=== PATIENT | female | born 1935 | race Caucasian/White ===

== ENCOUNTER 2019-06-20 15:53 | Emergency (ER) | payer OTHER ==
--- NOTE | 2019-06-20 16:06 | PDOC ---
Rapid Medical Evaluation Time Seen by Provider: 06/20/19 16:03 Medical Evaluation: Allergies Allergy/AdvReac Type Severity Reaction Status Date / Time metronidazole [From Flagyl] Allergy Severe Rash Verified 05/06/15 10:39 Metronidazole HCl Allergy Severe Rash Verified 05/06/15 10:39 [From Flagyl] codeine [Codeine] Allergy Intermediate Verified 05/06/15 10:39 shellfish derived Allergy Intermediate Verified 05/06/15 10:39 06/20/19 16:03 I performed a brief in-person evaluation of this patient. 83-year-old female HTN, HLD, fibromyalgia presenting with hematuria vs. rectal bleeding x 1 today. No pain, no dizziness/lightheadedness. Alert, oriented, no distress. No abdominal tenderness. I have ordered the following: UA/culture CBC, CMP, PT/INR, T&S Patient will proceed to the main ED for further evaluation. Discharge Disposition - Diagnosis Hematuria - Referrals - Patient Instructions - Post Discharge Activity
[2019-06-20 16:07] VITALS: BP 137/71; PULSE 71; TEMP 98; BMI 31.8
[2019-06-20 16:42] LABS: BASO % 0.7 % (0-2.0); EOS % 0.8 % (0-4.5); HEMATOCRIT 38.1 % (32.4-45.2); HEMOGLOBIN 12.9 GM/dL (10.7-15.3); MCH 32.7 pg (25.7-33.7); MCHC 33.9 g/dl (32.0-36.0); MEAN CELL VOLUME 96.5 fl (80-96); MEAN PLT VOLUME 7.8 fl (7.5-11.1); NEUT % 68.5 % (42.8-82.8); PLATELET COUNT 217 K/MM3 (134-434); RBC 3.95 M/mm3 (3.60-5.2); RDW 12.8 % (11.6-15.6); WHITE BLOOD COUNT 8.1 K/mm3 (4.0-10.0)
[2019-06-20 16:51] LABS: EPI CELLS 6.6 /HPF (0-5/HPF); HYALINE CASTS 3 /lpf (0-8); URINE APPEARANCE CLEAR; URINE BACTERIA 19.8 /hpf (NEGATIVE); URINE BILIRUBIN NEGATIVE (NEGATIVE); URINE COLOR YELLOW; URINE GLUCOSE (UA) NEGATIVE (NEGATIVE); URINE KETONE NEGATIVE (NEGATIVE); URINE LEUK ESTERASE TRACE (NEGATIVE); URINE NITRITE NEGATIVE (NEGATIVE); URINE PROTEIN TRACE (NEGATIVE); URINE RBC 24 /hpf (0-4); URINE UROBILINOGEN 0.2 mg/dL (0.2-1.0); URINE WBC 8 /hpf (0-5)
[2019-06-20 16:54] LABS: INR 0.93 (0.83-1.09)
[2019-06-20 17:12] LABS: ALBUMIN 3.8 g/dl (3.4-5.0); BILIRUBIN,TOTAL 0.2 mg/dL (0.2-1); CALCIUM 10.1 mg/dL (8.5-10.1); CREATININE 0.9 mg/dL (0.55-1.3); TOT PROT 6.8 g/dl (6.4-8.2)
--- NOTE | 2019-06-20 18:22 | PDOC ---
History of Present Illness - General Chief Complaint: Rectal Bleed Stated Complaint: rectal bleeding Time Seen by Provider: 06/20/19 16:03 History Source: Patient Exam Limitations: No Limitations - History of Present Illness Initial Comments: 06/22/19 13:43 83YOF with h/o who p/w report of one episode of medium-red blood in the toilet (not mixed with stool) and on the toilet paper earlier this afternoon. She denies any rectal pain and she herself speculates that this may be her hemorrhoids. She denies recent f/c/n/v/d/c, chest pain, SOB, RDZ, lightheadedness, dizziness, abdominal pain, n/t/w focally, generalized weakness, or other symptoms. Last colonoscopy was about 5 years ago and she has followed in the past with Dr. Jefferson and Dr. Fontana. Past History - Past Medical History Allergies/Adverse Reactions: Allergies Allergy/AdvReac Type Severity Reaction Status Date / Time metronidazole [From Flagyl] Allergy Severe Rash Verified 05/06/15 10:39 Metronidazole HCl Allergy Severe Rash Verified 05/06/15 10:39 [From Flagyl] codeine [Codeine] Allergy Intermediate Verified 05/06/15 10:39 shellfish derived Allergy Intermediate Verified 05/06/15 10:39 Home Medications: Ambulatory Orders Acetaminophen/Caffeine/Butalb [Fioricet -] 1 tab.ec PO PRN PRN #0 tablet Ascorbic Acid [Vitamin C] 1,000 mg PO DAILY #0 tablet 01/19/13 Aspirin 81 mg PO DAILY #0 tab.chew 01/19/13 Calcium Carb/Vit D3/Minerals [Calcium 600 + D Tablet] 2 each PO DAILY #0 tablet 01/19/13 Metoprolol Succinate [Toprol XL -] 25 mg PO HS #0 tab.sr.24h 01/19/13 NIFEdipine XL [Adalat Cc] 60 mg PO DAILY #0 tablet.sa 01/19/13 Olmesartan Medoxomil [Benicar -] 20 mg PO DAILY #0 tablet 01/19/13 [place] Oil/[place]-3 Fatty Acids [Fish Oil 500 mg Softgel] 2 each PO DAILY #0 capsule 01/19/13 Ubidecarenone [Co Q10] 200 mg PO DAILY #0 capsule 01/19/13 Biotin 1,000 mg PO DAILY 01/27/16 Glucosamine Sulfate Dipot Chlr [Glucosamine] 1,000 mg PO DAILY 01/27/16 Lutein 20 mg PO DAILY 01/27/16 Methylprednisolone [Medrol -] 2 mg PO BID 01/27/16 Rosuvastatin Calcium [Crestor] 5 mg PO DAILY 01/27/16 Anemia: No Asthma: No Cancer: Yes (BREAST) Cardiac Disorders: Yes (CAD;Heart Attack w/ card cath) CVA: No COPD: No CHF: No Dementia: No Diabetes: No GI Disorders: Yes (DUODENITIS; DIVERTICULOSIS;GERD; H/H) Disorders: Yes (CYSTOCYLE) HTN: Yes Hypercholesterolemia: Yes Liver Disease: No Seizures: No Thyroid Disease: No - Surgical History Abdominal Surgery: Yes (BENIGN CYSTS) Appendectomy: Yes Cardiac Surgery: Yes (CARGIAC CATH 91) Cholecystectomy: Yes Lung Surgery: No Neurologic Surgery: No Orthopedic Surgery: Yes (RIGHT ROTATOR CUFF) - Immunization History Immunization Up to Date: No - Psycho Social/Smoking Cessation Hx Smoking Status: No Smoking History: Never smoked Have you smoked in the past 12 months: No Number of Cigarettes Smoked Daily: 0 Information on smoking cessation initiated: No Hx Alcohol Use: No Drug/Substance Use Hx: No Substance Use Type: None Hx Substance Use Treatment: No Review of Systems - Review of Systems Able to Perform ROS?: Yes Comments:: 06/22/19 17:08 GEN: no fever, chills, night sweats, generalized weakness, malaise, or unintentional weight change HEENT: no ear pain, congestion, sore throat, rhinorrhea, nosebleed, vision change, or eye pain CV: no chest pain, palpitations, lightheadedness, syncope, edema, or exercise intolerance RESP: no cough, wheezing, or SOB GI: medium red blood per rectum, no abdominal pain, nausea, vomiting, diarrhea, constipation, appetite change, or white/black stool : no dysuria, hematuria, frequency, incontinence, retention, pruritis, bleeding, or discharge MSK: no muscle weakness or pain, no muscle wasting, no joint swelling or pain NEURO: no headache, seizure, vertigo, imbalance, numbness, tingling, focal weakness, or difficulty walking/talking PSYCH: no insomnia, behavior change, SI, HI, or substance use SKIN: no prutitis, excessive dryness, jaundice, rash, cuts, or unexplained bruises ROS otherwise negative except as noted in HPI *Physical Exam - Vital Signs Last Vital Signs Temp Pulse Resp BP Pulse Ox 98.0 F 71 16 137/71 98 06/20/19 16:04 06/20/19 16:04 06/20/19 16:04 06/20/19 16:04 06/20/19 16:04 - Physical Exam Comments: GENERAL: very pleasant and kind elderly female accompanied by her very pleasant and kind , well-appearing, nontoxic, A/Ox4, no distress, answers questions appropriately, walks around the department intermittently HEENT: PERRLA, EOMI, moist mucous membranes NECK/BACK: no midline ttp, no spinal stepoff or deformity, no hematoma, full ROM , neck supple CARDIOVASCULAR: regular rate/rhythm, normal S1S2, no MGR, strong peripheral pulses, capillary refill <2 seconds, extremities wwp, no edema LUNGS/RESPIRATORY: no respiratory distress, CTAB GI/ABDOMEN: symmetric [id number], normoactive BS, soft, no ttp, no midline pulsatile masses, rectal with small non-thrombosed nontender external hemorrhoid at 12 to 3 o'clock, JEFFERSON without blood and minimal sample but this is still sent for FOBT : no CVA tenderness EXTREMITIES: no muscle atrophy, no acute deformity SKIN: warm and dry, no pallor, no jaundice, no rash, no bruising, no skin breakdown, no cuts, no lesions NEUROLOGICAL: GCS 15, CN II-XII grossly intact, 5/5 strength proximally and distally, no facial droop ED Treatment Course - LABORATORY CBC & Chemistry Diagram: 06/20/19 16:22 06/20/19 16:22 - ADDITIONAL ORDERS Additional order review: Laboratory Results 06/20/19 06/20/19 06/20/19 16:22 16:22 16:22 PT with INR 11.00 INR 0.93 Sodium Potassium Chloride Carbon Dioxide Anion Gap BUN Creatinine Est GFR (CKD-EPI)AfAm Est GFR (CKD-EPI)NonAf Random Glucose Calcium Total Bilirubin AST ALT Alkaline Phosphatase Total Protein Albumin Urine Color Yellow Urine Appearance Clear Urine pH 5.0 Ur Specific [place] 1.022 Urine Protein Trace Urine Glucose (UA) Negative Urine Ketones Negative Urine Blood 3+ H Urine Nitrite Negative Urine Bilirubin Negative Urine Urobilinogen 0.2 Ur Leukocyte Esterase Trace Urine WBC (Auto) 8 Urine RBC (Auto) 24 Urine Casts (Auto) 3 U Epithel Cells (Auto) 6.6 Urine Bacteria (Auto) 19.8 Blood Type O POSITIVE Antibody Screen Negative 06/20/19 16:22 PT with INR INR Sodium 141 Potassium 4.0 Chloride 106 Carbon Dioxide 29 Anion Gap 6 L BUN 22.0 H Creatinine 0.9 Est GFR (CKD-EPI)AfAm 68.53 Est GFR (CKD-EPI)NonAf 59.13 Random Glucose 115 H Calcium 10.1 Total Bilirubin 0.2 AST 13 L ALT 19 Alkaline Phosphatase 90 Total Protein 6.8 Albumin 3.8 Urine Color Urine Appearance Urine pH Ur Specific [place] Urine Protein Urine Glucose (UA) Urine Ketones Urine Blood Urine Nitrite Urine Bilirubin Urine Urobilinogen Ur Leukocyte Esterase Urine WBC (Auto) Urine RBC (Auto) Urine Casts (Auto) U Epithel Cells (Auto) Urine Bacteria (Auto) Blood Type Antibody Screen 06/20/19 16:22 RBC 3.95 MCV 96.5 H MCHC 33.9 RDW 12.8 MPV 7.8 Neutrophils % 68.5 Lymphocytes % 22.0 Monocytes % 8.0 Eosinophils % 0.8 Basophils % 0.7 Medical Decision Making - Medical Decision Making 83YOF p/w painless medium red small-volume BPR. Initial Vital Signs Temp Pulse Resp BP Pulse Ox 98.0 F 71 16 137/71 98 06/20/19 16:04 06/20/19 16:04 06/20/19 16:04 06/20/19 16:04 06/20/19 16:04 Exam: As noted in Physical Exam section. DDX IBNLT bleeding hemorrhoids (internal vs. external, simple vs. thrombosed), vascular malformation, ruptured diverticulum, diverticulitis, colorectal CA, mesenteric ischemia, anal fissure, ulcerative colitis, AAA/AD, endometriosis, Meckels diverticulum, supratherapeutic INR, etc. W/U ordered: Labs as noted below Tx ordered: None at this time The patient is hemodynamically stable at this time (no hypotension, tachycardia , or reported decreased UOP). Laboratory Tests 06/20/19 06/20/19 06/20/19 16:22 16:22 16:22 WBC 8.1 RBC 3.95 Hgb 12.9 Hct 38.1 MCV 96.5 H MCH 32.7 MCHC 33.9 RDW 12.8 Plt Count 217 MPV 7.8 Absolute Neuts (auto) 5.5 Neutrophils % 68.5 Lymphocytes % 22.0 Monocytes % 8.0 Eosinophils % 0.8 Basophils % 0.7 Nucleated RBC % 0 PT with INR 11.00 INR 0.93 Sodium 141 Potassium 4.0 Chloride 106 Carbon Dioxide 29 Anion Gap 6 L BUN 22.0 H Creatinine 0.9 Est GFR (CKD-EPI)AfAm 68.53 Est GFR (CKD-EPI)NonAf 59.13 Random Glucose 115 H Calcium 10.1 Total Bilirubin 0.2 AST 13 L ALT 19 Alkaline Phosphatase 90 Total Protein 6.8 Albumin 3.8 Urine Color Urine Appearance Urine pH Ur Specific [place] Urine Protein Urine Glucose (UA) Urine Ketones Urine Blood Urine Nitrite Urine Bilirubin Urine Urobilinogen Ur Leukocyte Esterase Urine WBC (Auto) Urine RBC (Auto) Urine Casts (Auto) U Epithel Cells (Auto) Urine Bacteria (Auto) Stool Occult Blood Blood Type Antibody Screen 06/20/19 06/20/19 06/20/19 16:22 16:22 18:15 WBC RBC Hgb Hct MCV MCH MCHC RDW Plt Count MPV Absolute Neuts (auto) Neutrophils % Lymphocytes % Monocytes % Eosinophils % Basophils % Nucleated RBC % PT with INR INR Sodium Potassium Chloride Carbon Dioxide Anion Gap BUN Creatinine Est GFR (CKD-EPI)AfAm Est GFR (CKD-EPI)NonAf Random Glucose Calcium Total Bilirubin AST ALT Alkaline Phosphatase Total Protein Albumin Urine Color Yellow Urine Appearance Clear Urine pH 5.0 Ur Specific [place] 1.022 Urine Protein Trace Urine Glucose (UA) Negative Urine Ketones Negative Urine Blood 3+ H Urine Nitrite Negative Urine Bilirubin Negative Urine Urobilinogen 0.2 Ur Leukocyte Esterase Trace Urine WBC (Auto) 8 Urine RBC (Auto) 24 Urine Casts (Auto) 3 U Epithel Cells (Auto) 6.6 Urine Bacteria (Auto) 19.8 Stool Occult Blood Negative Blood Type O POSITIVE Antibody Screen Negative Workup is not concerning for emergency-level pathology at this time. The Pt is appropriate for discharge home w/ close outpatient f/u. The Pt is comfortable with this plan and will follow up with their primary care provider in 1-3 days. Referral information is given for GI provider Dr. Fontana to ensure she still has his contact info. Specific return precautions are discussed and they will come back to the ER if necessary. Discharge - Discharge Information Problems reviewed: Yes Clinical Impression/Diagnosis: Rectal bleeding Hematuria Qualifiers: Hematuria type: unspecified type Qualified Code(s): R31.9 - Hematuria, unspecified Hemorrhoids Qualifiers: Hemorrhoid type: unspecified Qualified Code(s): K64.9 - Unspecified hemorrhoids Condition: Stable Disposition: HOME - Admission No - Follow up/Referral Referrals: Heron Kurtz MD [Primary Care Provider] - Giselle Fontana MD [Staff Physician] - - Patient Discharge Instructions Patient Printed Discharge Instructions: DI for Rectal Bleeding, DI for Hematuria Additional Instructions: You were seen in the ER for rectal bleeding, most likely because of hemorrhoids. We did lab work and there is nothing that looks concerning right now. You are not anemic. There was a small amount of blood in the urine, but we do not believe there is any bladder infection or other issue. We did an exam and there is no active bleeding. After our assessment, we do not believe you are having a medical emergency at this time, and we believe you are safe to go home. Use the WASH regimen (warm sitz baths 3 times a day for 15 minutes, analgesic topical cream, stool softener, and high fiber diet). Please follow up with your primary care provider within the next week, or sooner if you have worsening rectal bleeding. Call their clinic [facility], tell them you were seen in the ER, and tell them you need an appointment. We are giving you referral information for your cone machine operator doctor Dr. Fontana so that you can follow up with him as well. You can always return to the ER for any new or worsening symptoms, especially if you have headache, dizziness, chest pain, or shortness of breath. If you are having severe or life threatening symptoms, or symptoms that make it unsafe to drive or have someone drive you, please call 911. - Post Discharge Activity
--- NOTE | 2019-06-20 18:28 | PDOC ---
Documentation entered by Cori Julien SCRIBE, acting as scribe for Mayi Rice MD. Mayi Rice MD: This documentation has been prepared by the Wily encarnacion Adrianna, SCRIBE, under my direction and personally reviewed by me in its entirety. I confirm that the documentation accurately reflects all work, treatment, procedures, and medical decision making performed by me. Attending Attestation - Resident Resident Name: Marsha Montgomery - ED Attending Attestation I have performed the following: I have examined & evaluated the patient, The case was reviewed & discussed with the resident, I agree w/resident's findings & plan, Exceptions are as noted - HPI HPI: 06/20/19 18:22 this 83 yo female presented because there was some bright red blood on the toilet paper - Physicial Exam PE: 06/20/19 18:23 wnwd 83 yo female who was concerned about rectal blood head ncat neck supple lungs cta b/l cvs [id number] abd nontender rectal done by Dr Montgomery and there were nonthrombosed haemorrhoids but no melena or active bleeding skin warm and dry neuro axox3,ambulatory - Medical Decision Making 06/20/19 18:25 labs are essentially wnl, no anemia imp rectal blood pt's has a GI specialist , Dr Fontana and will follow up with him
== END 2019-06-20 18:32 | disposition home or self-care (01) ==
LOC: JER 15:53
DX: K64.9 Unspecified hemorrhoids (principal); I25.10 Atherosclerotic heart disease of native coronary artery without angina pectoris; I10 Essential (primary) hypertension; Z95.1 Presence of aortocoronary bypass graft; I25.2 Old myocardial infarction; E78.00 Pure hypercholesterolemia, unspecified; Z87.19 Personal history of other diseases of the digestive system; Z87.448 Personal history of other diseases of urinary system; Z85.3 Personal history of malignant neoplasm of breast; Z88.1 Allergy status to other antibiotic agents; Z88.5 Allergy status to narcotic agent; Z91.013 Allergy to seafood
CPT/HCPCS: 36415; 80053; 81003; 82272; 85025; 85610; 86850; 86900; 86901; 87086; 99282-25

== ENCOUNTER 2022-09-03 12:17 | Emergency (ER) | payer OTHER ==
[2022-09-03 12:32] VITALS: BP 120/60; PULSE 72; RESP 20; TEMP 98.3; BMI 27.4
== END 2022-09-03 14:32 | disposition home or self-care (01) ==
LOC: FER 12:17
DX: M54.50 Low back pain, unspecified (principal); M25.552 Pain in left hip
CPT/HCPCS: 72100-TC-FY; 73502-TC-LT-FY; 99284-25

== ENCOUNTER 2023-01-25 14:35 | Emergency (ER) | payer OTHER ==
[2023-01-25 16:05] VITALS: BP 124/94; PULSE 65; RESP 18; TEMP 98.6; BMI 30.2
[2023-01-25 16:33] LABS: ALBUMIN 3.8 g/dl (3.4-5.0); BILIRUBIN,TOTAL 0.2 mg/dl (0.2-1); CALCIUM 8.7 mg/dl (8.5-10); CREATININE 0.7 mg/dl (0.55-1.3); POTASSIUM 3.7 mmol/L (3.5-5.1); TOT PROT 6.7 g/dl (6.4-8.2)
[2023-01-25 16:51] LABS: HEMATOCRIT 36.7 % (32.4-45.2); HEMOGLOBIN 12.2 G/dL (10.7-15.3); MCH 32.6 pg (25.7-33.7); MCHC 33.3 g/dl (32.0-36.0); MEAN CELL VOLUME 98.1 fl (80-96); MEAN PLT VOLUME 8.3 fl (7.5-11.1); PLATELET COUNT 231.5 10^3/uL (134-434); RBC 3.74 10^6/uL (3.60-5.2); RDW 13.3 % (11.6-15.6); WHITE BLOOD COUNT 6.8 10^3/uL (4.0-10.8)
[2023-01-25 17:45] LABS: PLATELET ESTIMATE ADEQUATE
== END 2023-01-25 17:30 | disposition home or self-care (01) ==
LOC: FER 14:35
DX: R05.9 Cough, unspecified (principal); Z20.822 Contact with and (suspected) exposure to COVID-19
CPT/HCPCS: 0241U-QW; 36415; 71046-TC-FY; 80053; 85027; 93005; 99285-25